=== PATIENT | female | born 1930 | race Caucasian/White ===

== ENCOUNTER 2017-07-13 12:31 | Day surgery (SDC) | payer MEDICARE, BC ==
[~2017-07-13] VITALS: Ht 165.1 cm; Wt 70.5 kg
[~2017-07-13 12:31] MED LIST: DIGO125T20 PO; IRON PO; LEVO25TA7 PO; MULT-933 PO; OMEP40CA37 PO; PRAV40TA3 PO; RIVA10TA PO
[2017-07-13 12:40] VITALS: BP 152/67
[2017-07-13] MEDS ORDERED: MIDAZolam 5mg/5ml vial ONE (13:09)
[2017-07-13] MEDS ORDERED: LIDOcaine 1% 30ml preserv. free vial ONE (13:09)
[2017-07-13] MEDS ORDERED: LIDOcaine Viscous 15ml cup ONE (13:09)
[2017-07-13] MEDS ORDERED: fentaNYL/PF 50MCG/1 ML 2ML syringe ONE (13:09)
[2017-07-13 14:12] VITALS: BP 117/60
[2017-07-13 14:22] VITALS: BP 130/57
[2017-07-13 14:32] VITALS: BP 117/50
[2017-07-13 14:42] VITALS: BP 144/68
== END 2017-07-13 15:05 | disposition home or self-care (01) ==
LOC: GI LAB 12:31
PROVIDERS: ATTEND Internal Medicine Gastroenterology
DX: K29.50 Unspecified chronic gastritis without bleeding (principal); K44.9 Diaphragmatic hernia without obstruction or gangrene; K31.89 Other diseases of stomach and duodenum; I48.91 Unspecified atrial fibrillation; Z98.890 Other specified postprocedural states
CPT/HCPCS: 43239; G0500; J2250; J3010; J7030; 88305; A4620; J3490